=== PATIENT | female | born 1995 | race Two or more races ===

== ENCOUNTER 2023-03-07 15:48 | Observation (INO) | payer MEDICAID | END 2023-03-07 18:01 | disposition home or self-care (01) | LOC: LDRP 15:48 → UNDOADMOB 15:48 → LDRP 16:04 | PROVIDERS: ADMIT Obstetrics & Gynecology; ATTEND Obstetrics & Gynecology | DX: O99.283 Endocrine, nutritional and metabolic diseases complicating pregnancy, third trimester (principal); E03.9 Hypothyroidism, unspecified; Z3A.32 32 weeks gestation of pregnancy | CPT/HCPCS: 59025; 76818; 81002; 94760; G0378 ==

== ENCOUNTER 2023-03-14 10:00 | Observation (INO) | payer MEDICAID ==
[2023-03-14] MEDS ORDERED: FERR-7 PO (10:21)
[2023-03-14] MEDS ORDERED: CYAN250L PO (10:22)
[2023-03-14] MEDS ORDERED: LEVO50TA7 PO (10:22)
== END 2023-03-14 11:43 | disposition home or self-care (01) ==
LOC: UNDOADMOB 10:00 → LDRP 10:00 → UNDODISOB 11:43
PROVIDERS: ADMIT Obstetrics & Gynecology; ATTEND Obstetrics & Gynecology
DX: O99.283 Endocrine, nutritional and metabolic diseases complicating pregnancy, third trimester (principal); E03.9 Hypothyroidism, unspecified; Z3A.33 33 weeks gestation of pregnancy
CPT/HCPCS: 59025; 76818; 81002; 94760; G0378

== ENCOUNTER 2023-03-21 11:07 | Observation (INO) | payer MEDICAID ==
[~2023-03-21 11:07] MED LIST: CYAN250L PO; FERR-7 PO; LEVO50TA7 PO
== END 2023-03-21 12:40 | disposition home or self-care (01) ==
LOC: LDRP 11:07
PROVIDERS: ADMIT Obstetrics & Gynecology; ATTEND Obstetrics & Gynecology
DX: O24.419 Gestational diabetes mellitus in pregnancy, unspecified control (principal); O26.893 Other specified pregnancy related conditions, third trimester; R10.9 Unspecified abdominal pain; O99.283 Endocrine, nutritional and metabolic diseases complicating pregnancy, third trimester; E03.9 Hypothyroidism, unspecified; Z3A.34 34 weeks gestation of pregnancy
CPT/HCPCS: 59025; 76818; 81002; G0378

== ENCOUNTER 2023-03-29 08:38 | Observation (INO) | payer MEDICAID | END 2023-03-29 10:55 | disposition home or self-care (01) | LOC: LDRP 09:14 | PROVIDERS: ADMIT Obstetrics & Gynecology; ATTEND Obstetrics & Gynecology | DX: O26.893 Other specified pregnancy related conditions, third trimester (principal); E03.9 Hypothyroidism, unspecified; O24.419 Gestational diabetes mellitus in pregnancy, unspecified control; Z3A.35 35 weeks gestation of pregnancy | CPT/HCPCS: 59025; 76818; 81002; 94760; G0378 ==

== ENCOUNTER 2023-04-10 10:08 | Observation (INO) | payer MEDICAID ==
[~2023-04-10] VITALS: Ht 152.4 cm; Wt 117.9 kg
== END 2023-04-10 12:30 | disposition home or self-care (01) ==
LOC: LDRP 10:08 → UNDOADMOB 10:08 → LDRP 10:22 → UNDODISOB 12:30
PROVIDERS: ADMIT Obstetrics & Gynecology; ATTEND Obstetrics & Gynecology
DX: O99.283 Endocrine, nutritional and metabolic diseases complicating pregnancy, third trimester (principal); E03.9 Hypothyroidism, unspecified; Z3A.36 36 weeks gestation of pregnancy
CPT/HCPCS: 59025; 76818; 81002; G0378

== ENCOUNTER 2023-04-24 10:05 | Observation (INO) | payer MEDICAID | END 2023-04-24 12:44 | disposition home or self-care (01) | LOC: UNDOADMOB 10:11 → LDRP 10:11 | PROVIDERS: ADMIT Obstetrics & Gynecology; ATTEND Obstetrics & Gynecology | DX: O99.283 Endocrine, nutritional and metabolic diseases complicating pregnancy, third trimester (principal); E03.9 Hypothyroidism, unspecified; Z3A.38 38 weeks gestation of pregnancy | CPT/HCPCS: 59025; 76818; 81002; 94760; G0378 ==

== ENCOUNTER 2023-04-29 00:54 | Observation (INO) | payer MEDICAID ==
[2023-04-29 02:00] LABS: Fern Testing Negative
[2023-04-30] MEDS ORDERED: LEV50T PO (21:45)
[2023-04-30] MEDS ORDERED: ACET-6 PO (21:45)
[2023-04-30] MEDS ORDERED: DOCU-265 PO (21:45)
[2023-04-30] MEDS ORDERED: IBUP-1455 PO (21:45)
[2023-04-30] MEDS ORDERED: ASCO1TAB27 PO (21:46)
[2023-04-30] MEDS ORDERED: FER325T PO (21:46)
[2023-04-30] MEDS ORDERED: PREN-94 PO (22:23)
== END 2023-04-29 02:21 | disposition home or self-care (01) ==
LOC: LDRP 00:54
PROVIDERS: ADMIT Obstetrics & Gynecology; ATTEND Obstetrics & Gynecology
DX: O62.9 Abnormality of forces of labor, unspecified (principal); Z3A.39 39 weeks gestation of pregnancy
CPT/HCPCS: 59025; 81002; 84112; 94762; G0378; Q0114

== ENCOUNTER 2023-04-29 09:49 | Inpatient (IN) | payer MEDICAID ==
[~2023-04-29] VITALS: Ht 152.4 cm; Wt 76.2 kg
[2023-04-29] MEDS ORDERED: LIDOCAINE 2%HCL (LOCAL ANESTH.) INJ 20ML MDV IJ PRN (10:00)
[2023-04-29] MEDS ORDERED: LACT. RINGERS/OXYTOCIN 20UNITS 500 ML IV ONE ×2 (10:00→10:30)
[2023-04-29] MEDS ORDERED: PROMETHAZINE HCL 25 MG/ML 1ML IV PRN (10:00)
[2023-04-29] MEDS ORDERED: PENICILLIN G POT 5MIL/D5 50ML 50 ML IV ONE (10:00)
[2023-04-29] MEDS ORDERED: PHISODERM TOP SOLN 240ML BTL TOP PRN (10:00)
[2023-04-29] MEDS ORDERED: BUTORPHANOL TARTRATE 2 MG/1 ML VIAL IV PRN ×2 (10:00)
[2023-04-29 11:46] LABS: Basophils # (auto) 0 10 ^3/uL (0-0.2); Basophils % (auto) 0.2 % (0.0-2.0); Eosinophils # (auto) 0 10 ^3/uL (0-0.8); Hematocrit 32.8 % (36.0-46.0); Lymphocytes # (auto) 1.5 10 ^3/uL (0.4-5.4); Monocytes # (auto) 0.6 10 ^3/uL (0-1.3)
[2023-04-29 11:48] LABS: Eosinophils % (auto) 0.2 % (0.0-7.0); Hemoglobin 10.5 g/dL (12.2-16.2); Lymphocytes % (auto) 12.2 % (10.0-50.0); Mean Corpuscular Hemoglobin 25.1 pg (28.0-32.0); Mean Corpuscular Volume 78.5 fL (80.0-100.0); Monocytes % (auto) 4.7 % (0.0-12.0); Neutrophils # (auto) 10.2 10 ^3/uL (1.6-8.6); Neutrophils % (auto) 82.7 % (37.0-80.0); Red Blood Cells 4.17 10^6/uL (4.0-5.20); Red Cell Distribution Width 19.8 % (11.8-14.3); White Blood Cell 12.3 10^3/uL (4.4-10.8)
[2023-04-29 12:36] LABS: INR 0.98 (0.9-1.15); Partial Thromboplastin Time 27.1 SEC (24.5-34.5); Prothrombin Time 10.3 sec (9.3-11.8)
[2023-04-29 12:40] LABS: Albumin 2.7 g/dL (3.4-5.0); Calcium 9.7 mg/dL (8.5-10.1); Potassium 4.3 mmol/L (3.5-5.1)
[2023-04-29 12:42] LABS: Amphetamine Screen, Urine NEGATIVE (NEGATIVE); Barbiturate Scree,Urine NEGATIVE (NEGATIVE); Benzodiazephine Screen, Urine NEGATIVE (NEGATIVE); Cannabinoid Screen, Urine NEGATIVE (NEGATIVE); Cocaine Screen, Urine NEGATIVE (NEGATIVE); Opiate Scree,Urine NEGATIVE (NEGATIVE); Phencyclidine Screen, Urine NEGATIVE (NEGATIVE)
[2023-04-29 12:48] LABS: Urine Bacteria NONE SEEN /hpf (None Seen); Urine Blood 1+ /uL (Negative); Urine Clarity Clear (Clear); Urine Color Yellow (Yellow); Urine Hyaline Cast FEW /lpf (0 - 2); Urine Protein, UAD 1+ (Negative); Urine Specific Gravity 1.015 (1.001-1.035); Urine Urobilinogen Normal (Negative); Urine WBC 15 /hpf (0 - 5)
[2023-04-29 12:53] LABS: BUN/Creatinine Ratio 17.3 (10.0-20.0); Bilirubin, Total 0.4 mg/dL (0.2-1.0); Total Protein 6.7 g/dL (6.4-8.2)
[2023-04-29] MEDS ORDERED: PENICILLIN G POTASSIUM 2,500,000 UNITS in D5W 5% 50 ML IV SCH (14:00)
[2023-04-29] MEDS ORDERED: CARBOPROST TROMETHAMINE 250 MCG/1ML VIAL IM PRN (15:45)
[2023-04-29] MEDS ORDERED: METHYLERGONOVINE MALEATE 0.2 MG/ML AMP IM PRN (15:45)
[2023-04-29] MEDS ORDERED: miSOPROStol 100 mcg TAB PR PRN (15:45)
[2023-04-29] MEDS ORDERED: miSOPROStol 100 mcg TAB SL PRN (15:45)
[2023-04-29] MEDS ORDERED: ONDANSETRON HCL 4 MG/2 ML VIAL IV PRN (15:45)
[2023-04-29] MEDS ORDERED: LACTATED RINGER'S 1,000 ML IV ONE (16:00)
[2023-04-29] MEDS ORDERED: ePHEDrine SULFATE 50 MG/ML AMP IV ONE (16:00)
[2023-04-29] MEDS ORDERED: NALOXONE HCL 0.4 MG/ML VIAL IV ONE (16:00)
[2023-04-29] MEDS ORDERED: fentaNYL CITRATE 100 MCG/2 ML VL IV ONE (16:00)
[2023-04-29] MEDS ORDERED: ROPIVACAINE HCL 200 ML EPI SCH (16:00)
[2023-04-29] MEDS ORDERED: FAMOTIDINE (10MG/ML) 2ML VL IV ONE ×2 (16:59→17:00)
[2023-04-29] MEDS: LACTATED RINGER'S 1,000 ML IV SCH ×2 (17:25→20:23)
[2023-04-29] MEDS ORDERED: TERBUTALINE SULFATE 1 MG/ML 1ML VIAL SC PRN (17:45)
[2023-04-29] MEDS ORDERED: LACT. RINGERS/OXYTOCIN 20UNITS 1,000 ML IV SCH (17:45)
[2023-04-29] MEDS: DERMOPLAST 60ML BOTTLE TOP PRN (19:58)
[2023-04-29] MEDS: WITCH HAZEL-GLYCERIN PAD TOP PRN (19:58)
[2023-04-29] MEDS ORDERED: DIPHENOXYLATE W/ATROPINE 2.5 MG TAB PO SCH (22:00)
[2023-04-29] MEDS ORDERED: ceFAZolin 2 GM/D5W100ml 100 ML IV STA (23:48)
[2023-04-29] MEDS ORDERED: ACETAMINOPHEN 325 MG TAB PO STA (23:48)
[2023-04-30] VITALS (7 sets, daily range): BP systolic 107–135; BP diastolic 64–90; PULSE 65–79; RESP 16–18; TEMP 97.8–98.2; O2SAT 96–97
[2023-04-30] MEDS ORDERED: ONDANSETRON ODT 4 MG TAB PO PRN (04:00)
[2023-04-30] MEDS ORDERED: IBUPROFEN 600 MG TAB PO PRN (04:00)
[2023-04-30] MEDS: IBUPROFEN 800 MG TAB PO SCH ×3 (05:09→18:12)
[2023-04-30 07:06] LABS: RPR Non Reactive (Non Reactive)
[2023-04-30] MEDS: ACETAMINOPHEN 325 MG TAB PO PRN ×2 (08:14→20:07)
[2023-04-30] MEDS ORDERED: LEVOTHYROXINE SODIUM 50 MCG TAB PO SCH (08:30)
[2023-04-30] MEDS ORDERED: LEV50T PO (21:45)
[2023-04-30] MEDS ORDERED: ACET-6 PO (21:45)
[2023-04-30] MEDS ORDERED: DOCU-265 PO (21:45)
[2023-04-30] MEDS ORDERED: IBUP-1455 PO (21:45)
[2023-04-30] MEDS ORDERED: ASCO1TAB27 PO (21:46)
[2023-04-30] MEDS ORDERED: FER325T PO (21:46)
[2023-04-30] MEDS ORDERED: DOCUSATE SOD 100 MG CAP PO SCH (22:00)
[2023-04-30] MEDS ORDERED: PREN-94 PO (22:23)
[2023-04-30] MEDS: DERMOPLAST 60ML BOTTLE TOP PRN (23:00)
[2023-04-30] MEDS: WITCH HAZEL-GLYCERIN PAD TOP PRN (23:00)
[2023-05-01] MEDS ORDERED: LEVOTHYROXINE SODIUM 50 MCG TAB PO SCH (06:30)
[2023-05-01 19:06] LABS: Treponema pallidum Ab (FTA-Ab) Non Reactive (Non Reactive)
== END 2023-04-30 23:28 | disposition home or self-care (01) | DRG 560 ==
LOC: LDRP 09:49
PROVIDERS: ADMIT Obstetrics & Gynecology; ATTEND Obstetrics & Gynecology
PROC: 10E0XZZ Delivery of Products of Conception, External Approach (ICD-10-PCS; principal; 2023-04-30)
PROC: 3E0R3BZ Introduction of Anesthetic Agent into Spinal Canal, Percutaneous Approach (ICD-10-PCS; 2023-04-30)
PROC: 00HU33Z Insertion of Infusion Device into Spinal Canal, Percutaneous Approach (ICD-10-PCS; 2023-04-30)
DX: O66.0 Obstructed labor due to shoulder dystocia (principal); Z37.0 Single live birth; D64.9 Anemia, unspecified; O77.0 Labor and delivery complicated by meconium in amniotic fluid; Z3A.39 39 weeks gestation of pregnancy; O90.81 Anemia of the puerperium
CPT/HCPCS: 36415; 59025; 59409; 62282; 80053; 80307; 81001; 85025; 85610; 85730; 86592; 86850; 86900; 86901; 94760; 94762; 96360; 96361; 96365; 96366; G0378; J2540; J2590; J3490; J7060